=== PATIENT | male | born 1995 | race Caucasian/White ===

== ENCOUNTER 2017-12-20 16:51 | Emergency (ER) | payer MEDICAID ==
[~2017-12-20] VITALS: Ht 175.3 cm; Wt 59.0 kg
[2017-12-20 16:51] VITALS: BP_SYST 130
[2017-12-20 18:02] VITALS: BP_SYST 126
== END 2017-12-20 17:59 ==
LOC: SED 16:51
DX: S83.92XA Sprain of unspecified site of left knee, initial encounter (principal); Y04.0XXA Assault by unarmed brawl or fight, initial encounter; Y93.89 Activity, other specified; Y92.89 Other specified places as the place of occurrence of the external cause; Y99.8 Other external cause status
CPT/HCPCS: 73560-TC; 99284